=== PATIENT | female | born 1995 | race Caucasian/White ===

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

== ENCOUNTER 2017-03-31 12:30 | Emergency (ER) | payer MEDICAID ==
--- NOTE | 2017-03-31 14:02 | ER Document Report ---
ED Medical Screen (RME) - General Chief Complaint: Abdominal Pain Stated Complaint: ABDOMINAL PAIN, BACK PAIN Time Seen by Provider: 03/31/17 14:00 Mode of Arrival: Ambulatory Information source: Patient Notes: Patient complains of bilateral lower quadrant abdominal pain for several days. She states her periods have been irregular. She also states that she is concerned that she may have a 60 transmitted disease and would like to be examined for that. She asked that no one else who is with her be told about her desire to have this testing. TRAVEL OUTSIDE OF THE [place] IN LAST 30 DAYS: No - Related Data Allergies/Adverse Reactions: codeine [Codeine] Adverse Reaction (Verified 03/31/17 12:31) VOMITING Past Medical History - Social History Chew tobacco use (# tins/day): No Frequency of alcohol use: None Drug Abuse: None Pulmonary Medical History: Reports: Hx Asthma, Hx Bronchitis Renal/ Medical History: Denies: Hx Peritoneal Dialysis Past Surgical History: Reports: Hx Section - Immunizations Immunizations up to date: Yes Hx Diphtheria, Pertussis, Tetanus Vaccination: Yes Physical Exam - Vital signs Vitals: Temp Pulse Resp BP Pulse Ox 98.6 F 71 20 118/64 97 03/31/17 12:34 03/31/17 12:34 03/31/17 12:34 03/31/17 12:34 03/31/17 12:34 Course - Vital Signs Vital signs: Temp Pulse Resp BP Pulse Ox 98.6 F 71 20 118/64 97 03/31/17 12:34 03/31/17 12:34 03/31/17 12:34 03/31/17 12:34 03/31/17 12:34
[2017-03-31 15:04] LABS: ABSOLUTE EOSINOPHILS # (AUTO) 0.3 10^3/uL (0.0-0.6); ABSOLUTE LYMPHOCYTES (AUTO) 2.8 10^3/uL (0.5-4.7); ABSOLUTE MONOCYTES (AUTO) 0.3 10^3/uL (0.1-1.4); ABSOLUTE NEUT (AUTO) 2.8 10^3/uL (1.7-8.2); BASOPHILS % (AUTO) 0.8 % (0-2); EOSINOPHILS % (AUTO) 4.4 % (0-6); HEMATOCRIT 37.8 % (36.0-47.0); HEMOGLOBIN 12.4 g/dL (12.0-15.5); LYMPHOCYTES % (AUTO) 44.6 % (13-45); MEAN CORPUSCULAR HEMOGLOBIN 25.4 pg (27.0-33.4); MEAN CORPUSCULAR HGB CONC 32.7 g/dL (32.0-36.0); MEAN CORPUSCULAR VOLUME 78 fl (80-97); MONOCYTES % (AUTO) 4.5 % (3-13); PLATELET COUNT 283 10^3/uL (150-450); RED BLOOD COUNT 4.89 10^6/uL (3.72-5.28); RED CELL DISTRIBUTION WIDTH 15.5 % (11.5-14.0); SEGMENTED NEUTROPHILS % (AUTO) 45.7 % (42-78); TOTAL CELLS COUNTED % (AUTO) 100 %; WHITE BLOOD COUNT 6.2 10^3/uL (4.0-10.5)
[2017-03-31 15:23] LABS: ALANINE AMINOTRANSFERASE 25 U/L (5-35); ALBUMIN 4.2 g/dL (3.7-5.6); ALKALINE PHOSPHATASE 48 U/L (50-135); ANION GAP 9 (5-19); ASPARTATE AMINO TRANSFERASE 16 U/L (5-30); BILIRUBIN,DIRECT 0.4 mg/dL (0.0-0.4); BILIRUBIN,TOTAL 0.4 mg/dL (0.2-1.3); BLOOD UREA NITROGEN 7 mg/dL (7-20); CALCIUM 10.1 mg/dL (8.4-10.2); CARBON DIOXIDE 26 mmol/L (22-30); CHLORIDE 106 mmol/L (98-107); GLUCOSE 102 mg/dL (75-110); SODIUM 141.1 mmol/L (137-145); TOTAL PROTEIN 7.1 g/dL (6.3-8.2)
[2017-03-31 15:56] LABS: APPEARANCE,URINE TURBID; BILIRUBIN,URINE NEGATIVE (NEGATIVE); COLOR,URINE YELLOW; GLUCOSE, URINE NEGATIVE (NEGATIVE); KETONES,URINE NEGATIVE (NEGATIVE); LEUKOCYTE ESTERASE,URINE NEGATIVE (NEGATIVE); NITRITE,URINE NEGATIVE (NEGATIVE); PROTEIN,URINE NEGATIVE (NEGATIVE); URINE SPECIFIC GRAVITY 1.029
[2017-03-31] MEDS ORDERED: AZITHROMYCIN 250 MG TABLET PO ONE (16:12)
[2017-03-31] MEDS ORDERED: LIDOCAINE 1% INJ-PF (10 MG/ML) 30 ML SDV INJ ONE (16:12)
[2017-03-31] MEDS ORDERED: CEFTRIAXONE INJ 250 MG VIAL IM ONE (16:12)
--- NOTE | 2017-03-31 16:22 | ER Document Report ---
ED GI/ - General Chief Complaint: Abdominal Pain Stated Complaint: ABDOMINAL PAIN, BACK PAIN Time Seen by Provider: 03/31/17 14:00 Mode of Arrival: Ambulatory Information source: Patient Notes: Pt is a 21 year old female who presents to the ER today for lower abdominal pain for 3 days in the middle lower abdomen, and concern for STDs. Her ex boyfriend cheated on her and she saw medication that she looked up and read was for chlamydia. She admits to green vaginal discharge. She denies fevers, chills , nausea or vomiting, diarrhea. TRAVEL OUTSIDE OF THE [place] IN LAST 30 DAYS: No - Related Data Allergies/Adverse Reactions: codeine [Codeine] Adverse Reaction (Verified 03/31/17 12:31) VOMITING Past Medical History - General Information source: Patient - Social History Smoking Status: Current Every Day Smoker Chew tobacco use (# tins/day): No Frequency of alcohol use: None Drug Abuse: None Family History: Arthritis, CAD, CVA, DM, Hyperlipidemia, Hypertension, Malignancy, Thyroid Disfunction Patient has suicidal ideation: No Patient has homicidal ideation: No Pulmonary Medical History: Reports: Hx Asthma, Hx Bronchitis Renal/ Medical History: Denies: Hx Peritoneal Dialysis Past Surgical History: Reports: Hx Section - Immunizations Immunizations up to date: Yes Hx Diphtheria, Pertussis, Tetanus Vaccination: Yes Review of Systems - Review of Systems Constitutional: No symptoms reported EENT: No symptoms reported Cardiovascular: No symptoms reported Respiratory: No symptoms reported Gastrointestinal: No symptoms reported Genitourinary: No symptoms reported Female Genitourinary: See HPI Musculoskeletal: No symptoms reported Skin: No symptoms reported Hematologic/Lymphatic: No symptoms reported Neurological/Psychological: No symptoms reported Physical Exam - Vital signs Vitals: Temp Pulse Resp BP Pulse Ox 98.6 F 71 20 118/64 97 03/31/17 12:34 03/31/17 12:34 03/31/17 12:34 03/31/17 12:34 03/31/17 12:34 - Notes Notes: PHYSICAL EXAMINATION: GENERAL: Well-appearing and in no acute distress. HEAD: Atraumatic, normocephalic. EYES: Pupils equal round and reactive to light, extraocular movements intact, sclera anicteric, conjunctiva are normal. ENT: ear canals without erythema or foreign body, TMs pearly penaloza with good bony landmarks, nares patent, oropharynx clear without exudates. Moist mucous membranes. NECK: Normal range of motion, supple without lymphadenopathy LUNGS: CTAB and equal. No wheezes rales or rhonchi. HEART: Regular rate and rhythm without murmurs ABDOMEN: Soft, mild suprapubic tenderness. No guarding, no rebound BACK: no vertebral tenderness, normal ROM GI/: no CVA tenderness EXTREMITIES: Normal range of motion, no pitting edema. No cyanosis. NEUROLOGICAL: Cranial nerves grossly intact. Normal sensory/motor exams. PSYCH: Normal mood, normal affect. SKIN: Warm, Dry, normal turgor, no rashes or lesions noted Course - Re-evaluation Re-evalutation: 03/31/17 16:22 pt does not want to wait on gonorrhea chlamydia results, prefers to be treated and I will call her with results. - Vital Signs Vital signs: Temp Pulse Resp BP Pulse Ox 98.6 F 71 20 118/64 97 03/31/17 12:34 03/31/17 12:34 03/31/17 12:34 03/31/17 12:34 03/31/17 12:34 - Laboratory Result Diagrams: 03/31/17 14:47 03/31/17 14:47 Laboratory results interpreted by me: 03/31/17 03/31/17 03/31/17 14:47 14:47 14:47 MCV 78 L MCH 25.4 L RDW 15.5 H Alkaline Phosphatase 48 L Urine Urobilinogen 2.0 H Discharge - Discharge Clinical Impression: Lower abdominal pain Condition: Stable Disposition: HOME, SELF-CARE Additional Instructions: Return immediately for any new or worsening symptoms. Follow up with primary care provider, call tomorrow to make followup appointment. Referrals: STEPH ARECHIGA MD [Primary Care Provider] - Follow up as needed
[2017-03-31 17:43] VITALS: BP 116/85
[2017-03-31 19:02] LABS: CHLAM PCR NOT DETECTED (NOT DETECT); GON PCR NOT DETECTED (NOT DETECT)
== END 2017-03-31 17:43 | disposition home or self-care (01) ==
LOC: ER 12:30
DX: R10.30 Lower abdominal pain, unspecified (principal); M54.9 Dorsalgia, unspecified; N89.8 Other specified noninflammatory disorders of vagina; F17.200 Nicotine dependence, unspecified, uncomplicated
CPT/HCPCS: 99284; 96372; 36415; 87086; 85025; 81025; 87088; 80053; 81001; 87186; 87491; 87591; Q0144; J3490; J0696

== ENCOUNTER 2017-09-18 19:24 | Emergency (ER) | payer MEDICAID ==
[2017-09-18 19:38] VITALS: BP 119/80
[2017-09-18] MEDS ORDERED: IBUPROFEN 400 MG TABLET PO ONE (20:31)
[2017-09-18] MEDS ORDERED: ACETAMINOPHEN 325 MG TABLET PO ONE (20:31)
--- NOTE | 2017-09-18 20:31 | ER Document Report ---
HPI - HPI Patient complains to provider of: right ear pain Onset: Other - few days Onset/Duration: Waxing and waning Pain Level: 4 Context: 22 yo female c/o right ear pain, no drainage, no recent URI, swimming a lot. Associated Symptoms: None Exacerbated by: Movement Relieved by: Denies - ROS ROS below otherwise negative: Yes Systems Reviewed and Negative: Yes All other systems reviewed and negative - CONSTITUTIONAL Constitutional: REPORTS: Fever - low grade, last night. DENIES: Chills - EENT EENT: REPORTS: Ear Pain - R ear x 2 days Past Medical History - General Information source: Patient - Social History Smoking Status: Current Every Day Smoker Chew tobacco use (# tins/day): No Frequency of alcohol use: None Drug Abuse: None Family History: Arthritis, CAD, CVA, DM, Hyperlipidemia, Hypertension, Malignancy, Thyroid Disfunction Patient has suicidal ideation: No Patient has homicidal ideation: No Pulmonary Medical History: Reports: Hx Asthma, Hx Bronchitis Renal/ Medical History: Denies: Hx Peritoneal Dialysis Past Surgical History: Reports: Hx Section - Immunizations Immunizations up to date: Yes Hx Diphtheria, Pertussis, Tetanus Vaccination: Yes Vertical Provider Document - CONSTITUTIONAL Agree With Documented VS: Yes Exam Limitations: No Limitations General Appearance: No Apparent Distress - INFECTION CONTROL TRAVEL OUTSIDE OF THE [place] IN LAST 30 DAYS: No - HEENT HEENT: negative: Tympanic Membrane Red, Tympanic Membrane Bulging Notes: tender mild swelling righ ear canal, mastoid normal. no nodes. no swelling to external ear. Course - Vital Signs Vital signs: Temp Pulse Resp BP Pulse Ox 98.3 F 100 H 18 119/80 100 09/18/17 19:24 09/18/17 19:24 09/18/17 19:24 09/18/17 19:24 09/18/17 19:24 Discharge - Discharge Clinical Impression: Right otitis externa Condition: Good Disposition: HOME, SELF-CARE Instructions: Ibuprofen (General) ([facility]), Otitis Externa ([facility]), Warm Packs ([facility]) Additional Instructions: warm compress tylenol up to 4000 mg a day for pain Motrin 400 mg every 6 hours for pain Eardrops for up to 5 days to resolve the otitis externa Return if any increased swelling or pain to the external ear or any fever. no swimming until the ear feels better Prescriptions: Neomy Sulf/Polymyx B Sulf/Hc [Cortisporin Ear Suspension] 2 drop AD Q4H #1 bot Forms: Return to Work
== END 2017-09-18 20:43 | disposition home or self-care (01) ==
LOC: ER 19:24
DX: H60.91 Unspecified otitis externa, right ear (principal); H92.01 Otalgia, right ear; F17.200 Nicotine dependence, unspecified, uncomplicated
CPT/HCPCS: 99283; J3490 ×2

== ENCOUNTER 2017-09-21 23:10 | Emergency (ER) | payer MEDICAID ==
[2017-09-21 23:50] VITALS: BP 126/55
--- NOTE | 2017-09-22 00:22 | ER Document Report ---
ED General - General Chief Complaint: Ear Pain Stated Complaint: EARACHE TRAVEL OUTSIDE OF THE [place] IN LAST 30 DAYS: No - HPI Notes: 22-year-old female with recent diagnosis of otitis externa presents with recurrent ear pain. Patient was diagnosed and started therapy and actually improved, however, yesterday and today she was swimming again. She now complains of throbbing aching burning pain in her right ear. Gradual onset, nonradiating. No other modifying factors, no other associated symptoms, no other provocative or palliative factors. - Related Data Allergies/Adverse Reactions: codeine [Codeine] Adverse Reaction (Verified 03/31/17 12:31) VOMITING Past Medical History - Social History Smoking Status: Unknown if Ever Smoked Family History: Arthritis, CAD, CVA, DM, Hyperlipidemia, Hypertension, Malignancy, Thyroid Disfunction Patient has suicidal ideation: No Patient has homicidal ideation: No - Medical History Notes: Includes recent otitis externa Pulmonary Medical History: Reports: Hx Asthma, Hx Bronchitis Renal/ Medical History: Denies: Hx Peritoneal Dialysis Past Surgical History: Reports: Hx Section - Immunizations Immunizations up to date: Yes Hx Diphtheria, Pertussis, Tetanus Vaccination: Yes Review of Systems - Review of Systems Notes: Review of systems as in history of present illness, otherwise no significant headache, chest pain, abdominal pain. Physical Exam - Vital signs Vitals: Temp Pulse Resp BP Pulse Ox 98.9 F 71 18 126/55 H 100 09/21/17 23:48 09/21/17 23:48 09/21/17 23:48 09/21/17 23:48 09/21/17 23:48 - Notes Notes: General: Well devloped, no acute distress. HEENT: Normocephalic, atraumatic. Pupils equal round reactive to light. Mucosa moist. No JVD. External canal has debris erythema and mild edema Chest: No trauma, normal excursion. Respiratory: Good air exchange, normal excursion. Cardiac: Regular rhythm Abdomen: Soft, benign. Nondistended. Back: No asymmetry or gross abnormality. Motor: Grossly normal power and tone. Neurologic: Alert, nonfocal. Vascular: Well perfused Skin: No petechiae or purpura Course - Re-evaluation Re-evalutation: 09/22/17 00:21 Ill-appearing female with recurrent right otitis externa secondary to behavioral noncompliance. Advised to stop swimming, continue medication, ibuprofen and Tylenol for pain. - Vital Signs Vital signs: Temp Pulse Resp BP Pulse Ox 98.9 F 71 18 126/55 H 100 09/21/17 23:48 09/21/17 23:48 09/21/17 23:48 09/21/17 23:48 09/21/17 23:48 Discharge - Discharge Clinical Impression: Otitis externa Qualifiers: Otitis externa type: swimmer's ear Chronicity: acute Laterality: right Qualified Code(s): H60.331 - Swimmer's ear, right ear Disposition: HOME, SELF-CARE Instructions: Use of Ear Drops ([facility]), Otitis Externa ([facility])
== END 2017-09-22 00:21 | disposition home or self-care (01) ==
LOC: ER 23:10
DX: H60.331 Swimmer's ear, right ear (principal); J45.909 Unspecified asthma, uncomplicated
CPT/HCPCS: 99282

== ENCOUNTER 2017-11-28 23:26 | Emergency (ER) | payer MEDICAID ==
[2017-11-29 00:38] LABS: HEMATOCRIT 34.5 % (36.0-47.0); HEMOGLOBIN 11.4 g/dL (12.0-15.5); MEAN CORPUSCULAR HEMOGLOBIN 26.1 pg (27.0-33.4); MEAN CORPUSCULAR VOLUME 79 fl (80-97); PLATELET COUNT 253 10^3/uL (150-450); RED BLOOD COUNT 4.37 10^6/uL (3.72-5.28); RED CELL DISTRIBUTION WIDTH 14.9 % (11.5-14.0); WHITE BLOOD COUNT 10.5 10^3/uL (4.0-10.5)
[2017-11-29 00:48] LABS: ANION GAP 11 (5-19); BLOOD UREA NITROGEN 12 mg/dL (7-20); CALCIUM 9.3 mg/dL (8.4-10.2); CARBON DIOXIDE 22 mmol/L (22-30); CHLORIDE 107 mmol/L (98-107); GLUCOSE 95 mg/dL (75-110); POTASSIUM 4.2 mmol/L (3.6-5.0); SODIUM 139.7 mmol/L (137-145)
[2017-11-29 01:13] LABS: APPEARANCE,URINE SLIGHTLY-CLOUDY; BILIRUBIN,URINE NEGATIVE (NEGATIVE); COLOR,URINE YELLOW; GLUCOSE, URINE NEGATIVE (NEGATIVE); KETONES,URINE NEGATIVE (NEGATIVE); LEUKOCYTE ESTERASE,URINE NEGATIVE (NEGATIVE); NITRITE,URINE NEGATIVE (NEGATIVE); PROTEIN,URINE 30 mg/dL (NEGATIVE); URINE SPECIFIC GRAVITY 1.021
--- NOTE | 2017-11-29 01:21 | ER Document Report ---
ED General - General Chief Complaint: Vaginal Bleeding Stated Complaint: VAGINAL BLEEDING Time Seen by Provider: 11/29/17 00:10 Notes: Patient is a 22-year-old female without chronic medical problems who presents with several hours of vaginal bleeding and lower abdominal cramping. She states that she has bled through several tampons, is passing golf ball size clots prompting her to come to the emergency department for further assessment. No history of similar in the past. Last period was approximately 1 month ago. She has not seen her HEAVY FORGING MACHINE OPERATOR or general doctor regarding today's concerns. She denies any associated lightheadedness, syncope, or dyspnea. She does describe a diffuse, cramping, moderate lower abdominal discomfort. Nothing improves or worsens her symptoms. TRAVEL OUTSIDE OF THE [place] IN LAST 30 DAYS: No - Related Data Allergies/Adverse Reactions: codeine [Codeine] Adverse Reaction (Verified 03/31/17 12:31) VOMITING Past Medical History - General Information source: Patient - Social History Smoking Status: Current Every Day Smoker Frequency of alcohol use: None Drug Abuse: None Lives with: Spouse/Significant other Family History: Arthritis, CAD, CVA, DM, Hyperlipidemia, Hypertension, Malignancy, Thyroid Disfunction Pulmonary Medical History: Reports: Hx Asthma, Hx Bronchitis Renal/ Medical History: Denies: Hx Peritoneal Dialysis Past Surgical History: Reports: Hx Section - Immunizations Immunizations up to date: Yes Hx Diphtheria, Pertussis, Tetanus Vaccination: Yes Review of Systems - Review of Systems Notes: Constitutional: Negative for fever. HENT: Negative for sore throat. Eyes: Negative for visual changes. Cardiovascular: Negative for chest pain. Respiratory: Negative for shortness of breath. Gastrointestinal: Positive for lower abdominal pain Genitourinary: Positive for vaginal bleeding Musculoskeletal: Negative for back pain. Skin: Negative for rash. Neurological: Negative for headaches, weakness or numbness. 10 point ROS negative except as marked above and in HPI. Physical Exam - Vital signs Vitals: Temp Pulse Resp BP Pulse Ox 99.0 F 80 18 116/61 98 11/28/17 23:38 11/28/17 23:38 11/28/17 23:38 11/28/17 23:38 11/28/17 23:38 Interpretation: Normal Notes: PHYSICAL EXAMINATION: GENERAL: Well-appearing, well-nourished and in no acute distress. HEAD: Atraumatic, normocephalic. EYES: Pupils equal round and reactive to light, extraocular movements intact, sclera anicteric, conjunctiva are normal. ENT: nares patent, oropharynx clear without exudates. Moist mucous membranes. NECK: Normal range of motion, supple without lymphadenopathy LUNGS: Breath sounds clear to auscultation bilaterally and equal. No wheezes rales or rhonchi. HEART: Regular rate and rhythm without murmurs ABDOMEN: Soft, nontender, normoactive bowel sounds. No guarding, no rebound. No masses appreciated. EXTREMITIES: Normal range of motion, no pitting or edema. No cyanosis. NEUROLOGICAL: No focal neurological deficits. Moves all extremities spontaneously and on command. PSYCH: Normal mood, normal affect. SKIN: Warm, Dry, normal turgor, no rashes or lesions noted. Course - Re-evaluation Re-evalutation: 11/29/17 01:18 Presentation is most consistent with dysfunctional uterine bleeding and otherwise well-appearing patient. Very mild anemia. She is not . No tachycardia or hypotension. Examination is otherwise unremarkable. She denies bleeding through more than 2 pads an hour at any point in time. No indication for ultrasound at this time based on benign exam, vitals and laboratories. No active bleeding at this time. At this time will discharge with return precautions and follow-up recommendations. Verbal discharge instructions given a the bedside and opportunity for questions given. Medication warnings reviewed. Patient is in agreement with this plan and has verbalized understanding of return precautions and the need for primary care follow-up in the next 24-72 hours. - Vital Signs Vital signs: Temp Pulse Resp BP Pulse Ox 99.0 F 80 18 116/61 98 11/28/17 23:38 11/28/17 23:38 11/28/17 23:38 11/28/17 23:38 11/28/17 23:38 - Laboratory Result Diagrams: 11/29/17 00:25 11/29/17 00:25 Laboratory results interpreted by me: 11/29/17 11/29/17 00:25 00:39 Hgb 11.4 L Hct 34.5 L MCV 79 L MCH 26.1 L RDW 14.9 H Urine Protein 30 H Urine Blood LARGE H Urine Urobilinogen 2.0 H Discharge - Discharge Clinical Impression: Dysfunctional uterine bleeding, Episode of heavy vaginal bleeding Condition: Good Disposition: HOME, SELF-CARE Additional Instructions: You were seen today for dysfunctional uterine bleeding. You need to follow-up with HEAVY FORGING MACHINE OPERATOR or your primary care physician the next 1-3 days. Return immediately if you worsening pain, you began bleeding through more than 2 pads per hour for more than 3 hours, you pass out, have persistent vomiting, develop a fever greater than 100.4F, or any other symptoms that are concerning to you.
[2017-11-29 01:43] VITALS: BP 121/60
== END 2017-11-29 01:45 | disposition home or self-care (01) ==
LOC: ER 23:26
DX: N93.8 Other specified abnormal uterine and vaginal bleeding (principal); R10.30 Lower abdominal pain, unspecified; D64.9 Anemia, unspecified; F17.200 Nicotine dependence, unspecified, uncomplicated; J45.909 Unspecified asthma, uncomplicated
CPT/HCPCS: 36415; 80048; 81001; 81025; 85027; 99284

== ENCOUNTER 2017-12-20 23:02 | Emergency (ER) | payer MEDICAID ==
[2017-12-21] MEDS ORDERED: KETOROLAC TROMETHAMINE INJ/PF 30 MG/1 ML SDV IV ONE (00:32)
[2017-12-21] MEDS ORDERED: NORMAL SALINE 1000 ML 1,000 ML IV ONE (00:33)
--- NOTE | 2017-12-21 00:34 | ER Document Report ---
ED GI/ - General Chief Complaint: Abdominal Pain Stated Complaint: ABDOMINAL PAIN Time Seen by Provider: 12/21/17 00:26 Notes: Patient is a 22-year-old female that comes to the emergency department for chief complaint of abdominal pain, pain started earlier today, pain is in both upper and lower abdomen and also in both parts of her mid lower back. She denies nausea or vomiting, fever or chills. She states pain is worse when she takes a step. No vaginal bleeding or abnormal discharge reported, denies dysuria. Past medical history of , no other surgeries. Last bowel movement was last week, she states this is normal for her, she has one about once a week. She is on Subutex. She denies any other medications. She denies alcohol, smoking, recreational drugs. Significant other at bedside. TRAVEL OUTSIDE OF THE [place] IN LAST 30 DAYS: No - Related Data Allergies/Adverse Reactions: codeine [Codeine] Adverse Reaction (Verified 03/31/17 12:31) VOMITING Past Medical History - General Information source: Patient - Social History Smoking Status: Never Smoker Drug Abuse: None Lives with: Family Family History: Arthritis, CAD, CVA, DM, Hyperlipidemia, Hypertension, Malignancy, Thyroid Disfunction Pulmonary Medical History: Reports: Hx Asthma, Hx Bronchitis Renal/ Medical History: Denies: Hx Peritoneal Dialysis Past Surgical History: Reports: Hx Section - Immunizations Immunizations up to date: Yes Hx Diphtheria, Pertussis, Tetanus Vaccination: Yes Review of Systems - Review of Systems Constitutional: No symptoms reported EENT: No symptoms reported Cardiovascular: No symptoms reported Respiratory: No symptoms reported Gastrointestinal: See HPI Genitourinary: See HPI Female Genitourinary: No symptoms reported Musculoskeletal: No symptoms reported Skin: No symptoms reported Hematologic/Lymphatic: No symptoms reported Neurological/Psychological: No symptoms reported Physical Exam - Vital signs Vitals: Temp Pulse Resp BP Pulse Ox 99.0 F 79 18 132/66 H 99 12/20/17 23:25 12/20/17 23:25 12/20/17 23:25 12/20/17 23:25 12/20/17 23:25 - Notes Notes: GENERAL: Alert, interacts well. No acute distress. HEAD: Normocephalic, atraumatic. EYES: Pupils equal, round, and reactive to light. Extraocular movements intact. ENT: Oral mucosa moist, tongue midline. Oropharynx unremarkable. Airway patent. Nares patent, no nasal septal hematoma, TM's intact. NECK: Full range of motion. Supple. Trachea midline. LUNGS: Clear to auscultation bilaterally, no wheezes, rales, or rhonchi. No respiratory distress. HEART: Regular rate and rhythm. No murmur ABDOMEN: Generalized tenderness of the mid to lower abdomen, wincing with palpation on both the right and left lower quadrants. Non-distended. Bowel sounds present in all 4 quadrants. GENITOURINARY: Deferred EXTREMITIES: Moves all 4 extremities spontaneously. No edema, normal radial and dorsalis pedis pulses bilaterally. No cyanosis. BACK: no cervical, thoracic, lumbar midline tenderness. No saddle anesthesia, normal distal neurovascular exam. NEUROLOGICAL: Alert and oriented x3. Normal speech. [cranial nerves II through XII grossly intact]. PSYCH: Normal affect, normal mood. SKIN: Warm, dry, normal turgor. No rashes or lesions noted. Course - Re-evaluation Re-evalutation: CBC shows leukocytosis at 14,000 with elevation of neutrophils. Chemistry unremarkable. Urinalysis unremarkable. test is negative. On reevaluation patient complaining of lower abdominal pain, greater on the right compared to the left. This is reproducible on exam. Discussion was made. After discussion of pros and cons decision was made to proceed with CAT scan to rule out acute appendicitis or other acute process. CT of the abdomen/pelvis with IV contrast showing normal appendix, moderate stool load, small left ovarian cyst without concerning appearance, appearance of enteritis. No acute findings. On reevaluation this time patient is much more comfortable, sleeping, easily aroused, no current complaints. I now have very low suspicion of acute appendicitis or other acute abdominal process. Discussed options with patient. After discussion patient will be discharged with medications for her symptoms , stool softener, discussed follow-up, discussed return precautions in detail. Patient states satisfaction and agreement with plan. - Vital Signs Vital signs: Temp Pulse Resp BP Pulse Ox 97.6 F 64 18 112/69 100 12/21/17 04:15 12/21/17 04:15 12/21/17 04:15 12/21/17 04:15 12/21/17 04:15 - Laboratory Result Diagrams: 12/21/17 01:12 12/21/17 01:12 Laboratory results interpreted by me: 12/21/17 01:12 WBC 14.1 H MCV 79 L MCH 26.1 L RDW 14.5 H Absolute Neutrophils 9.3 H Discharge - Discharge Clinical Impression: Abdominal pain Qualifiers: Abdominal location: generalized Qualified Code(s): R10.84 - Generalized abdominal pain Condition: Stable Disposition: HOME, SELF-CARE Additional Instructions: Your workup shows some inflammation in the small bowel, probably viral, some constipation, and an ovarian cyst that should resolve with time. Take the Toradol if needed for pain, Phenergan for nausea/abdominal discomfort, and the Colace stool softener for the next several days. Drink plenty of fluids , start with clear fluids, progress to bland food and rest. Follow-up with primary care. Return if you worsen including severe pain, swelling of the abdomen, fever of 100.4 or greater, vomiting, or any other concerning worsening symptoms. Prescriptions: Ketorolac Tromethamine [Toradol 10 mg Tablet] 10 mg PO Q8HP PRN #24 tablet PRN Reason: Docusate Sodium [Colace 100 mg Capsule] 100 mg PO ASDIR PRN #30 capsule PRN Reason: Promethazine HCl [Phenergan 25 mg Tablet] 25 mg PO Q6H PRN #20 tablet PRN Reason: Forms: Return to Work
[2017-12-21 01:25] LABS: ABSOLUTE BASOPHILS # (AUTO) 0.1 10^3/uL (0.0-0.2); ABSOLUTE EOSINOPHILS # (AUTO) 0.2 10^3/uL (0.0-0.6); ABSOLUTE LYMPHOCYTES (AUTO) 3.9 10^3/uL (0.5-4.7); ABSOLUTE MONOCYTES (AUTO) 0.7 10^3/uL (0.1-1.4); ABSOLUTE NEUT (AUTO) 9.3 10^3/uL (1.7-8.2); BASOPHILS % (AUTO) 0.4 % (0-2); EOSINOPHILS % (AUTO) 1.6 % (0-6); HEMATOCRIT 36.3 % (36.0-47.0); LYMPHOCYTES % (AUTO) 27.5 % (13-45); MEAN CORPUSCULAR HEMOGLOBIN 26.1 pg (27.0-33.4); MEAN CORPUSCULAR HGB CONC 32.9 g/dL (32.0-36.0); MEAN CORPUSCULAR VOLUME 79 fl (80-97); MONOCYTES % (AUTO) 4.6 % (3-13); PLATELET COUNT 243 10^3/uL (150-450); RED BLOOD COUNT 4.58 10^6/uL (3.72-5.28); RED CELL DISTRIBUTION WIDTH 14.5 % (11.5-14.0); SEGMENTED NEUTROPHILS % (AUTO) 65.9 % (42-78); TOTAL CELLS COUNTED % (AUTO) 100 %; WHITE BLOOD COUNT 14.1 10^3/uL (4.0-10.5)
[2017-12-21 01:39] LABS: APPEARANCE,URINE SLIGHTLY-CLOUDY; BILIRUBIN,URINE NEGATIVE (NEGATIVE); COLOR,URINE YELLOW; GLUCOSE, URINE NEGATIVE (NEGATIVE); KETONES,URINE NEGATIVE (NEGATIVE); LEUKOCYTE ESTERASE,URINE NEGATIVE (NEGATIVE); NITRITE,URINE NEGATIVE (NEGATIVE); PROTEIN,URINE NEGATIVE (NEGATIVE); URINE SPECIFIC GRAVITY 1.011; UROBILINOGEN,URINE NEGATIVE mg/dL (<2.0)
[2017-12-21 02:30] LABS: ALANINE AMINOTRANSFERASE 11 U/L (9-52); ALBUMIN 4.4 g/dL (3.5-5.0); ALKALINE PHOSPHATASE 58 U/L (38-126); ANION GAP 12 (5-19); ASPARTATE AMINO TRANSFERASE 16 U/L (14-36); BILIRUBIN,DIRECT 0.3 mg/dL (0.0-0.4); BILIRUBIN,TOTAL 0.5 mg/dL (0.2-1.3); BLOOD UREA NITROGEN 10 mg/dL (7-20); CALCIUM 9.5 mg/dL (8.4-10.2); CARBON DIOXIDE 28 mmol/L (22-30); CHLORIDE 103 mmol/L (98-107); GLUCOSE 97 mg/dL (75-110); POTASSIUM 4.2 mmol/L (3.6-5.0); SODIUM 143.4 mmol/L (137-145); TOTAL PROTEIN 7.6 g/dL (6.3-8.2)
--- NOTE | 2017-12-21 03:36 | RADIOLOGY REPORT (SQ) ---
EXAM DESCRIPTION: CT ABDOMEN PELVIS WITH IV CONTRAST COMPLETED DATE/TME: 12/21/2017 02:40 CLINICAL HISTORY: 22 years, Female, RLQ pain, leukocytosis COMPARISON: None. TECHNIQUE: Axial CT images of the abdomen and pelvis were obtained of the the administration of IV contrast. The AP 610 Images stored on PACS. All CT scanners at this facility use dose modulation, iterative reconstruction, and/or weight based dosing when appropriate to reduce radiation dose to as low as reasonably achievable (ALARA). [facility]: Dose Right [facility]: CareDose [facility]: Dose Right [facility]: Teradose 4D [facility]: StudyBlue LIMITATIONS: None. FINDINGS: The lung bases are clear. The liver, pancreas, spleen, adrenal glands, and kidneys appear unremarkable. There is no hydronephrosis. The gallbladder is contracted. There is no intraperitoneal free air or fluid. There is no lymphadenopathy. The abdominal aorta is normal in caliber. The stomach appears unremarkable. There is mild thickening of the fluid-filled small bowel. The appendix is normal. The colon contains a moderate amount of stool. The uterus appears unremarkable. There is a left ovarian cyst that measures 3.0 x 1.9 cm. No follow-up imaging is recommended. The urinary bladder is unremarkable. There are no lytic or blastic bone lesions IMPRESSION: Normal appendix. Mild thickening of the fluid-filled small bowel, which is nonspecific, and may be due to an enteritis. TECHNICAL DOCUMENTATION: Quality ID # [id number]: Final reports with documentation of one or more dose reduction techniques (e.g., Automated exposure control, adjustment of the mA and/or kV according to patient size, use of iterative reconstruction technique) 2010 [employer]- All Rights Reserved
[2017-12-21] MEDS ORDERED: DOCUSATE SODIUM 100 MG CAPSULE PO ONE (04:01)
[2017-12-21] MEDS ORDERED: ONDANSETRON ODT 4 MG TAB (6 TAB/ER DISP) PO PRN (04:01)
[2017-12-21 04:17] VITALS: BP 112/69
== END 2017-12-21 04:20 | disposition home or self-care (01) ==
LOC: ER 23:02
DX: R10.84 Generalized abdominal pain (principal); M54.5 Low back pain; D72.828 Other elevated white blood cell count; J45.909 Unspecified asthma, uncomplicated; Z79.891 Long term (current) use of opiate analgesic
CPT/HCPCS: 99284; 96361; 96374; 36415; 83690; 85025; 81025; 80053; 81001; 74177; J3490; J1885; J7030

== ENCOUNTER 2018-02-10 23:29 | Emergency (ER) | payer MEDICAID ==
[2018-02-10 23:37] VITALS: BP 121/68
== END 2018-02-11 00:50 | disposition left against medical advice (07) ==
LOC: ER 23:29
DX: Z53.21 Procedure and treatment not carried out due to patient leaving prior to being seen by health care provider (principal)

== ENCOUNTER 2018-03-24 19:48 | Emergency (ER) | payer MEDICAID ==
--- NOTE | 2018-03-24 20:24 | ER Document Report ---
ED Medical Screen (RME) - General Chief Complaint: Vaginal Discharge Stated Complaint: ABDOMINAL PAIN Time Seen by Provider: 03/24/18 20:20 Primary Care Provider: ELIANA BRAGG MD [Primary Care Provider] - Follow up as needed TRAVEL OUTSIDE OF THE [place] IN LAST 30 DAYS: No - HPI Patient complains to provider of: Lower abdominal pain, vaginal discharge Notes: 03/24/18 20:23 Patient is a 22-year-old female presenting to the emergency room complaining of lower abdominal pain with vaginal discharge that started approximately 1-1/2 hours prior to my initial evaluation, she reports dark brownish colored discharge, last menstrual period was in December but she denies being although admits to unprotected intercourse, patient reports an abnormal menstrual cycle RAPID MEDICAL EVALUATION DISCLOSURE I have seen this patient as part of a Rapid Medical Evaluation and, if applicable, placed any initially appropriate orders. The patient will be seen and fully evaluated, including a full history and physical exam, by a provider (in Main ED or Fast Track) when a room becomes available. - Related Data Allergies/Adverse Reactions: paroxetine [From Paxil] Allergy (Verified 03/24/18 20:12) codeine [Codeine] Adverse Reaction (Verified 03/24/18 20:12) VOMITING Past Medical History Pulmonary Medical History: Reports: Hx Asthma, Hx Bronchitis Renal/ Medical History: Denies: Hx Peritoneal Dialysis Past Surgical History: Reports: Hx Section - Immunizations Immunizations up to date: Yes Hx Diphtheria, Pertussis, Tetanus Vaccination: Yes Physical Exam - Vital signs Vitals: Temp Pulse Resp BP Pulse Ox 98.4 F 89 18 121/57 L 99 03/24/18 20:00 03/24/18 20:00 03/24/18 20:00 03/24/18 20:00 03/24/18 20:00 Course - Vital Signs Vital signs: Temp Pulse Resp BP Pulse Ox 98.4 F 89 18 121/57 L 99 03/24/18 20:00 03/24/18 20:00 03/24/18 20:00 03/24/18 20:00 03/24/18 20:00 Doctor's Discharge - Discharge Referrals: ELIANA BRAGG MD [Primary Care Provider] - Follow up as needed
[2018-03-24 21:01] LABS: ABSOLUTE BASOPHILS # (AUTO) 0.1 10^3/uL (0.0-0.2); ABSOLUTE EOSINOPHILS # (AUTO) 0.3 10^3/uL (0.0-0.6); ABSOLUTE LYMPHOCYTES (AUTO) 3.8 10^3/uL (0.5-4.7); ABSOLUTE MONOCYTES (AUTO) 0.6 10^3/uL (0.1-1.4); ABSOLUTE NEUT (AUTO) 6.8 10^3/uL (1.7-8.2); BASOPHILS % (AUTO) 0.7 % (0-2); EOSINOPHILS % (AUTO) 2.8 % (0-6); HEMATOCRIT 35.7 % (36.0-47.0); HEMOGLOBIN 11.9 g/dL (12.0-15.5); LYMPHOCYTES % (AUTO) 32.8 % (13-45); MEAN CORPUSCULAR HEMOGLOBIN 25.8 pg (27.0-33.4); MEAN CORPUSCULAR HGB CONC 33.4 g/dL (32.0-36.0); MEAN CORPUSCULAR VOLUME 77 fl (80-97); MONOCYTES % (AUTO) 5.1 % (3-13); PLATELET COUNT 228 10^3/uL (150-450); RED BLOOD COUNT 4.62 10^6/uL (3.72-5.28); RED CELL DISTRIBUTION WIDTH 15.3 % (11.5-14.0); SEGMENTED NEUTROPHILS % (AUTO) 58.6 % (42-78); TOTAL CELLS COUNTED % (AUTO) 100 %; WHITE BLOOD COUNT 11.7 10^3/uL (4.0-10.5)
[2018-03-24 21:09] LABS: APPEARANCE,URINE SLIGHTLY-CLOUDY; BILIRUBIN,URINE NEGATIVE (NEGATIVE); COLOR,URINE YELLOW; GLUCOSE, URINE NEGATIVE (NEGATIVE); KETONES,URINE NEGATIVE (NEGATIVE); LEUKOCYTE ESTERASE,URINE NEGATIVE (NEGATIVE); NITRITE,URINE NEGATIVE (NEGATIVE); PROTEIN,URINE NEGATIVE (NEGATIVE); URINE SPECIFIC GRAVITY 1.014; UROBILINOGEN,URINE NEGATIVE mg/dL (<2.0)
[2018-03-24 21:18] LABS: ALANINE AMINOTRANSFERASE 10 U/L (9-52); ALBUMIN 4.3 g/dL (3.5-5.0); ALKALINE PHOSPHATASE 51 U/L (38-126); ANION GAP 10 (5-19); ASPARTATE AMINO TRANSFERASE 12 U/L (14-36); BILIRUBIN,DIRECT 0.2 mg/dL (0.0-0.4); BILIRUBIN,TOTAL 0.2 mg/dL (0.2-1.3); BLOOD UREA NITROGEN 10 mg/dL (7-20); CALCIUM 9.5 mg/dL (8.4-10.2); CARBON DIOXIDE 26 mmol/L (22-30); CHLORIDE 102 mmol/L (98-107); GLUCOSE 83 mg/dL (75-110); LIPASE 76.1 U/L (23-300); POTASSIUM 4.3 mmol/L (3.6-5.0); SODIUM 138.1 mmol/L (137-145); TOTAL PROTEIN 7.2 g/dL (6.3-8.2)
[2018-03-24 23:34] LABS: CHLAM PCR NOT DETECTED (NOT DETECT); GON PCR NOT DETECTED (NOT DETECT)
--- NOTE | 2018-03-25 00:01 | RADIOLOGY REPORT (SQ) ---
EXAM DESCRIPTION: US LESS THAN 14 WEEKS COMPLETED DATE/TME: 03/24/2018 21:49 CLINICAL HISTORY: 22 years Female, concern for ectopic COMPARISON: None TECHNIQUE: Transvaginal. LIMITATIONS: None. FINDINGS: Living intrauterine fetus measures 11w1d with SARANYA of 10/12/2018. Cardiac activity is 178-bpm. [place]-rump length is 4.2-cm. Nonvisualized right ovary, 3.6-cm left ovary with likely 3.1 cm corpus luteal cyst, 2.5-cm cervical length, and no free fluid. IMPRESSION: Living 1st trimester intrauterine gestation. No evidence of complication.
[2018-03-25] MEDS ORDERED: ONDANSETRON 4 MG TAB.RAPDIS PO ONE (02:08)
[2018-03-25] MEDS ORDERED: ACETAMINOPHEN 325 MG TABLET PO ONE (02:08)
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
[2018-03-25 02:29] VITALS: BP 106/60
== END 2018-03-25 02:32 | disposition home or self-care (01) ==
LOC: ER 19:48
DX: T76.21XA Adult sexual abuse, suspected, initial encounter (principal); R10.9 Unspecified abdominal pain; O99.331 Smoking (tobacco) complicating pregnancy, first trimester; Z3A.11 11 weeks gestation of pregnancy
CPT/HCPCS: 99284; 36415; 87086; 83690; 84703; 85025; 80053; 81001; 87491; 87591; 76801; 93976; J3490; S0119

== ENCOUNTER 2018-07-24 12:01 | Emergency (ER) | payer MEDICAID ==
--- NOTE | 2018-07-24 12:58 | ER Document Report ---
HPI - HPI Time Seen by Provider: 07/24/18 12:14 Pain Level: 5 Context: Patient is a 22-year-old female who presents the emergency department with a red bump on the back of her right leg. She states that she noticed it 2 days ago after going to the beach. She states that the pain is increased since yesterday. She states that she also had a fever of 101 at home. She has taken some Tylenol to help with her symptoms. She is currently on Suboxone and Xanax. She takes Suboxone because she has a history of Percocet and heroin substance abuse. - CONSTITUTIONAL Constitutional: DENIES: Fever, Chills - EENT EENT: DENIES: Sore Throat, Ear Pain - NEURO Neurology: DENIES: Headache, Weakness - CARDIOVASCULAR Cardiovascular: DENIES: Chest pain - RESPIRATORY Respiratory: DENIES: Trouble Breathing, Coughing - GASTROINTESTINAL Gastrointestinal: DENIES: Abdominal Pain - REPRODUCTIVE Reproductive: DENIES: : - MUSCULOSKELETAL Musculoskeletal: REPORTS: Extremity pain - Dorsal aspect of right thigh. DENIES: Back Pain, Neck Pain, Swelling - DERM Skin Color: Normal Notes: Cellulitis noted to dorsal aspect of right thigh. No fluctuance noted. Past Medical History - General Information source: Patient - Social History Smoking Status: Current Every Day Smoker Chew tobacco use (# tins/day): No Frequency of alcohol use: None Drug Abuse: None Family History: Arthritis, CAD, CVA, DM, Hyperlipidemia, Hypertension, Malignancy, Thyroid Disfunction Patient has suicidal ideation: No Patient has homicidal ideation: No Pulmonary Medical History: Reports: Hx Asthma, Hx Bronchitis Renal/ Medical History: Denies: Hx Peritoneal Dialysis Psychiatric Medical History: Reports: Hx Depression - anxiety Past Surgical History: Reports: Hx Section - Immunizations Immunizations up to date: Yes Hx Diphtheria, Pertussis, Tetanus Vaccination: Yes Vertical Provider Document - CONSTITUTIONAL Agree With Documented VS: Yes Exam Limitations: No Limitations General Appearance: No Apparent Distress - INFECTION CONTROL TRAVEL OUTSIDE OF THE [place] IN LAST 30 DAYS: No - HEENT HEENT: Atraumatic, Normocephalic, PERRLA - NECK Neck: Normal Inspection - RESPIRATORY Respiratory: Breath Sounds Normal, No Respiratory Distress - CARDIOVASCULAR Cardiovascular: Regular Rate, Regular Rhythm Pulses: Normal: Radial - MUSCULOSKELETAL/EXTREMETIES Musculoskeletal/Extremeties: FROM - NEURO Level of Consciousness: Awake, Alert, Appropriate - DERM Integumentary: Warm, Dry Adult Front & Back Diagram: 1 - Cellulitis noted. No fluctuance noted. Course - Re-evaluation Re-evalutation: 07/24/18 12:58 Patient presents with symptoms most consistent with an acute cellulitis. Vitals within normal limits. Patient does not meet sepsis criteria is overall very well in appearance. Exam and history are not consistent with DVT. Patient will be started on coverage for both staph and strep. At this time will discharge with return precautions and follow-up recommendations. Verbal discharge instructions given a the bedside and opportunity for questions given. Medication warnings reviewed. Patient is in agreement with this plan and has verbalized understanding of return precautions and the need for primary care follow-up in the next 24-72 hours. - Vital Signs Vital signs: Temp Pulse Resp BP Pulse Ox 98.0 F 80 16 108/68 99 07/24/18 12:13 07/24/18 12:13 07/24/18 12:13 07/24/18 12:13 07/24/18 12:13 Discharge - Discharge Clinical Impression: Cellulitis Qualifiers: Site of cellulitis: extremity Site of cellulitis of extremity: lower extremity Laterality: right Qualified Code(s): L03.115 - Cellulitis of right lower limb Condition: Stable Disposition: HOME, SELF-CARE Additional Instructions: The rash is likely due to infection of your skin. You need to take the antibiotics as prescribed. Do not stop even if the rash goes away until you have completed all the antibiotics. The area of redness was traced out here in the emergency department with a marking pen. You need to return to emergency department if the redness spreads outside of this area by more than 2 cm in any direction. You should also return if you develop fevers with temperature greater than 101, persistent vomiting, worsening pain, or have any other symptoms that are concerning to you. Prescriptions: Cephalexin [Keflex] 500 mg PO BID #14 capsule Sulfamethoxazole/Trimethoprim [Bactrim Ds Tablet] 1 each PO BID 7 Days #14 tablet Forms: Return to Work Referrals: ELIANA BRAGG MD [Primary Care Provider] - Follow up in 1 week
[2018-07-24 13:10] VITALS: BP 110/70
== END 2018-07-24 13:10 | disposition home or self-care (01) ==
LOC: ER 12:01
DX: L03.115 Cellulitis of right lower limb (principal); R50.9 Fever, unspecified; F17.200 Nicotine dependence, unspecified, uncomplicated; F41.9 Anxiety disorder, unspecified; F11.10 Opioid abuse, uncomplicated; Z79.899 Other long term (current) drug therapy
CPT/HCPCS: 99282